=== PATIENT | male | born 1975 | race Caucasian/White ===

== ENCOUNTER 2023-07-18 21:23 | Emergency (ER) | payer SELFPAY ==
[2023-07-18 22:23] LABS: Absolute Lymphocytes (CBC) 2.1 K/uL (0.7-4.9); Hematocrit 46.5 % (39.6-49.0); Lymphocytes % 13.3 % (15.3-44.8); MCV 85.5 fL (80-100); MPV 8.8 fL (7.6-11.3); Platelets 273 thou/uL (152-406); RBC Red Blood Cell Count 5.43 M/uL (4.33-5.43)
[2023-07-18 22:31] LABS: Protime INR 1.11
[2023-07-18 22:37] LABS: Barbiturates NEGATIVE (NEGATIVE); Benzodiazepines NEGATIVE (NEGATIVE); Cocaine NEGATIVE (NEGATIVE); METHAMPHETAM NEGATIVE (NEGATIVE); Methadone NEGATIVE (NEGATIVE); Opiates NEGATIVE (NEGATIVE); Phencyclidine NEGATIVE (NEGATIVE); THC Cannibis NEGATIVE (NEGATIVE)
[2023-07-18 22:43] LABS: ALT/SGPT 44 U/L (16-61); AST/SGOT 33 U/L (15-37); Albumin 4.3 g/dL (3.4-5.0); Alkaline Phosphatase 82 U/L (45-117); BUN Blood Urea Nitrogen 7 mg/dL (7-18); Bicarbonate 23 mEq/L (21-32); Bilirubin Direct 0.1 mg/dL (0-0.2); Bilirubin Indirect, Calculated 0.5 mg/dL (0.2-0.8); Bilirubin Total 0.6 mg/dL (0.2-1.0); Glomerular Filtration Rate 86 ml/min (=/>90); Glucose Level 91 mg/dL (74-106); Potassium 3.6 mEq/L (3.5-5.1); Protein, Total 8.4 g/dL (6.4-8.2); Sodium Level 134 mEq/L (136-145)
--- NOTE | 2023-07-18 22:53 | ER ---
Nurse's Notes [facility] Name: Andrés Galaviz Age: 48 yrs Sex: Male : 1975 Arrival Date: 07/18/2023 Time: 21:23 Bed 20 Private MD: Diagnosis: Suicidal ideations;Other depressive episodes Presentation: 07/18 21:31 Chief complaint: EMS states: FOUND SLEEPING AT [facility] BUS STOP, ASKED FOR TRANSPORT TO ER FOR PSYCH D/O. Coronavirus screen: At this time, the client does not indicate any symptoms associated with coronavirus-19. Ebola Screen: No symptoms or risks identified at this time. Initial Sepsis Screen: Does the patient meet any 2 criteria? No. Patient's initial sepsis screen is negative. Does the patient have a suspected source of infection? No. Patient's initial sepsis screen is negative. Risk Assessment: Do you want to hurt yourself or someone else? Patient reports desire/thoughts of hurting themselves or someone else. Provider notified. Onset of symptoms was July 18, 2023. 21:31 Method Of Arrival: EMS: [facility] bp 21:31 Acuity: EARLE 2 bp Triage Assessment: 21:33 General: Appears in no apparent distress. unkempt, Behavior is calm, cooperative, bp appropriate for age. Pain: Denies pain. Neuro: Level of Consciousness is awake, alert, obeys commands, Oriented to Appropriate for age. Historical: - Allergies: 21:33 No Known Allergies; bp - Home Meds: 21:33 None [Active]; bp - PMHx: 21:33 Unable to Obtain; bp - Immunization history:: Adult Immunizations unknown. - Social history:: Smoking status: Patient reports the use of cigarette tobacco products, unknown amount. Screenin:33 [facility] ED Fall Risk Assessment (Adult) History of falling in the last 3 months, bp including since admission No falls in past 3 months (0 pts). Abuse screen: Denies threats or abuse. Denies injuries from another. Nutritional screening: No deficits noted. Tuberculosis screening: No symptoms or risk factors identified. Assessment: 23:36 Reassessment: Filemon Sandoval screener stated 1.5 hour ETA. pf1 07/19 02:00 Reassessment: FILEMON SANDOVAL AT B/S. bp 04:00 Reassessment: IN PATIENT RECOMMENDED BY [facility] SCREENER. bp 08:50 Reassessment: Patient appears in no apparent distress at this time. General: Appears in tm6 no apparent distress. comfortable, Behavior is calm, quiet. Psych: 15:16 [place] Suicide Severity Screening: In the past month, have you wished you were tm6 or wished you could go to sleep and not wake up? Patient responds "yes." "In the past month, have you actually had any thoughts of killing yourself?" Patient responds "no." "In your lifetime, have you ever done anything, started to do anything, or prepared to do anything to end your life?" Patient responds "no.". Subjective: Patient's mood is sad. Objective: Patient is cooperative. Interventions: Removed personal items and placed in bag. Patient placed in hospital gown. Searched person for dangerous items. Urine collected and sent for urine drug test. Belonging list filled out. Patient reassessed during use of restraints. Patient is physically safe. Safety Checks: Personal items have been removed. Door is open. Pt denies substance abuse. Commitment: Patient will be a voluntary commitment. Vital Signs: 07/18 21:31 BP 137 / 95; Pulse 97; Resp 16; Temp 98.9; Pulse Ox 97% ; bp 21:36 BP 135 / 88; Pulse 97; Resp 18; Temp 98.4(O); Pulse Ox 99% on R/A; Weight 79.38 kg; oe Height 5 ft. 5 in. ; 21:36 Body Mass Index 29.12 (79.38 kg, 165.1 cm) oe ED Course: 21:31 Patient arrived in ED. bp 21:32 Triage completed. bp 21:33 Arm band placed on. bp 21:33 Patient has correct armband on for positive identification. Bed in low position. Call bp light in reach. 21:34 Barrera Arenas DO is Attending Physician. ms3 21:51 Raul Cho, RN is Primary Nurse. bp 22:00 Inserted saline lock: 22 gauge in left wrist, using aseptic technique. bp 23:[address] [facility] for pysch evaluation. Spoke w/ kennedy. 12 23:34 [facility] returned call screener will be by in 1hr. [facility] 23:34 faxed transfer documents to [facility] [place] [place], [facility], [address], [facility], [facility] and [facility]. 07/19 06:08 No provider procedures requiring assistance completed. bp 09:25 Called the [facility] Crisis line to see if the screener can come re screen the patient.eb 10:49 refaxed clinicals to [facility]. eb 14:09 connected the nurse from [facility] with Jonathan Rn for patient transfer eb consultation. 14:20 administrative approval given Arianne Wheat/ patient has been accepted to [facility]/ Dr. Aydin Tovar has accepted the patient in transfer without conference with the ED provider. 15:17 IV discontinued, intact, bleeding controlled, No redness/swelling at site. tm6 Administered Medications: 07/18 23:49 Drug: Ibuprofen PO 600 mg PO once Route: PO; bp 07/19 06:09 Follow up: Response: No adverse reaction bp Medication: 15:17 VIS not applicable for this client. tm6 Outcome: 07/18 22:52 ER care complete, transfer ordered by ms3 07/19 15:16 Transferred by ground EMS tm6 Condition: stable Instructed on the need for transfer, 15:17 Patient left the ED. tm6 Signatures: Aryan Garcia Brian, RN RN bp Lora George Marcus, DO DO ms3 Antoinette Montes, RN RN pf1 Angelia Raymundo jr12 Jonathan Scales, RN RN tm6 Corrections: (The following items were deleted from the chart) 07/18 22:28 21:36 BP 135 / 88; Pulse 97bpm; Resp 18bpm; Pulse Ox 99% RA; Temp 98.4F Oral; oe oe
--- NOTE | 2023-07-18 22:53 | EDPHYS ---
Physician Documentation [facility] Name: Andrés Galaviz Age: 48 yrs Sex: Male : 1975 Arrival Date: 07/18/2023 Time: 21:23 Bed 20 Private MD: ED Physician Barrera Arenas HPI: 07/18 22:26 This 48 yrs old Male presents to ER via EMS with complaints of Psych Problem. 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 Patient states he is wanting to jump in front of traffic to end it all. Patient denies taking medications or drugs. Patient endorses a headache that he has had since the age of 16. Historical: - Allergies: 21:33 No Known Allergies; bp - Home Meds: 21:33 None [Active]; bp - PMHx: 21:33 Unable to Obtain; bp - Immunization history:: Adult Immunizations unknown. - Social history:: Smoking status: Patient reports the use of cigarette tobacco products, unknown amount. ROS: 22:26 Constitutional: Negative for fever, and chills. ENT: Negative for injury, pain, and ms3 discharge, Neck: Negative for injury, pain, and swelling, Cardiovascular: Negative for chest pain, and palpitations. Respiratory: Negative for shortness of breath, cough, wheezing, and pleuritic chest pain, Abdomen/GI: Negative for abdominal pain, nausea, vomiting, diarrhea, and constipation, MS/Extremity: Negative for injury and deformity, Skin: Negative for injury, rash, and discoloration, 22:26 Neuro: Positive for headache, 22:26 All other systems are negative, Exam: 22:26 Constitutional: This is a well developed, well nourished patient who is awake, alert, ms3 and in no acute distress. Head/Face: Normocephalic, atraumatic. Neck: Trachea midline, no cervical lymphadenopathy. Supple, full range of motion without nuchal rigidity, or vertebral point tenderness. No Meningismus. Chest/axilla: Normal chest wall appearance and motion. Nontender with no deformity. Cardiovascular: Regular rate and rhythm with a normal S1 and S2. No gallops, murmurs, or rubs. Normal PMI, no JVD. No pulse deficits. Respiratory: Lungs have equal breath sounds bilaterally, clear to auscultation and percussion. No rales, rhonchi or wheezes noted. No increased work of breathing, no retractions or nasal flaring. Abdomen/GI: Soft, non-tender, with normal bowel sounds. No distension or tympany. No guarding or rebound. No evidence of tenderness throughout. Skin: Warm, dry with normal turgor. Normal color with no rashes, no lesions, and no evidence of cellulitis. MS/ Extremity: Pulses equal, no cyanosis. Neurovascular intact. Full, normal range of motion. 23:03 ECG was reviewed by the Attending Physician. ms3 Vital Signs: 21:31 BP 137 / 95; Pulse 97; Resp 16; Temp 98.9; Pulse Ox 97% ; bp 21:36 BP 135 / 88; Pulse 97; Resp 18; Temp 98.4(O); Pulse Ox 99% on R/A; Weight 79.38 kg; oe Height 5 ft. 5 in. ; 21:36 Body Mass Index 29.12 (79.38 kg, 165.1 cm) oe MDM: 21:35 Patient medically screened. ms3 22:26 Differential diagnosis: drug withdrawal. acute psychotic break, depression, psychosis ms3 secondary to non-compliance. 23:47 Data reviewed: vital signs, nurses notes, lab test result(s), EKG, and as a result, I ms3 will discharge patient. Consideration of Admission/Observation Will transfer to psychiatric facility. Independent interpretation of the following test(s) in the Emergency Department EKG: See my EKG interpretation above. Historians other than the Patient: EMS: [facility]. Counseling: I had a detailed discussion with the patient and/or guardian regarding the historical points, exam findings, and any diagnostic results supporting the discharge/admit diagnosis, lab results, the need to transfer to another facility, [facility] does not immediately have the required specialist. ED course: Will consult [facility] for inpatient placement.. 07/18 21:35 Order name: Acetaminophen; Complete Time: 22:51 ms3 07/18 21:35 Order name: BMP; Complete Time: 22:51 ms3 07/18 21:35 Order name: CBC with Diff; Complete Time: 22:51 ms3 07/18 21:35 Order name: Ethanol; Complete Time: 22:51 ms3 07/18 21:35 Order name: Hepatic Function; Complete Time: 22:51 ms3 07/18 21:35 Order name: Protime (+inr); Complete Time: 22:51 ms3 07/18 21:35 Order name: Ptt, Activated; Complete Time: 22:51 ms3 07/18 21:35 Order name: Salicylate; Complete Time: 22:51 ms3 07/18 21:35 Order name: Urine Drug Screen; Complete Time: 22:51 ms3 07/18 21:35 Order name: EKG; Complete Time: 21:35 ms3 07/18 21:35 Order name: EKG - Nurse/Tech; Complete Time: 21:57 ms3 07/18 21:35 Order name: IV Saline Lock; Complete Time: 23:38 ms3 07/18 21:35 Order name: Labs collected and sent; Complete Time: 23:38 ms3 07/18 21:35 Order name: O2 Per Protocol; Complete Time: 21:57 ms3 07/18 21:35 Order name: O2 Sat Monitoring; Complete Time: 21:57 ms3 07/18 21:35 Order name: Suicide Precautions; Complete Time: 21:57 ms3 07/18 21:35 Order name: Suicide Screening ([place]); Complete Time: 21:57 ms3 EC:03 Rate is 103 beats/min. Rhythm is regular. QRS [place] is Normal. [place] interval is normal. ms3 QRS interval is normal. Clinical impression: Sinus tachycardia. Interpreted by me. Reviewed by me. Administered Medications: 23:49 Drug: Ibuprofen PO 600 mg PO once Route: PO; bp 07/19 06:09 Follow up: Response: No adverse reaction bp Disposition Summary: 07/18/23 22:52 Transfer Ordered Notes: Transfer Location: Psych Facility ms3 Reason: Higher level of care ms3 Condition: Stable ms3 Problem: new ms3 Symptoms: are unchanged ms3 Accepting Physician: (07/19/23 15:17) tm6 Diagnosis - Suicidal ideations ms3 - Other depressive episodes ms3 Forms: - Medication Reconciliation Form ms3 - SBAR form ms3 Signatures: Dispatcher [employer] Raul Vasquez RN RN Barrera Bernardo DO DO msJonathan Trent, RN RN tm6 Corrections: (The following items were deleted from the chart) 07/18 22 22:52 ms3 ms3 07/19 15:17 07/18 22:53 ms3 tm6
[2023-07-19] MEDS ORDERED: IBUPROFEN 200 MG TAB PO ONE
[2023-07-19 15:23] VITALS: BP 135/88; TEMP 98.4; O2SAT 99
--- NOTE | 2023-07-22 17:35 | EKG ---
Test Date: 2023-07-18 Test Time: 21:54:01 Technical Illustrator: AMELIA MEASUREMENT RESULTS: Intervals: Rate: 103 MT: 118 QRSD: 86 QT: 330 QTc: 432 [place]: P: 66 MT: 118 QRS: 61 T: 68 INTERPRETIVE STATEMENTS: Sinus tachycardia Otherwise normal ECG No previous ECG available for comparison Electronically Signed On 07-22-23 17:25:52 [employer] by Rao Mccullough
== END 2023-07-19 15:17 ==
LOC: ER 21:23
DX: R45.851 Suicidal ideations (principal); F32.89 Other specified depressive episodes
CPT/HCPCS: 36415; 80048; 80076; 80143; 80179; 80307; 82077; 85025; 85610; 85730; 93005; 99285